=== PATIENT | female | born 1975 | race Caucasian/White ===

== ENCOUNTER 2022-10-16 14:23 | Emergency (ER) | payer SELFPAY ==
[~2022-10-16] VITALS: Ht 165.1 cm; Wt 78.0 kg
[2022-10-16 14:37] VITALS: BP 129/60
[2022-10-16] MEDS ORDERED: DEXAMETHASONE 10 MG/ML VIAL IM ONE (17:15)
[2022-10-16] MEDS ORDERED: IBUP-2029 MT (17:59)
== END 2022-10-16 18:33 | disposition home or self-care (01) ==
LOC: ER 14:23
DX: J06.9 Acute upper respiratory infection, unspecified (principal); Z20.822 Contact with and (suspected) exposure to COVID-19
CPT/HCPCS: 71045; 81025; 87070; 87426; 87430; 96372; 99284; C9803; J1100

== ENCOUNTER 2022-12-21 09:48 | Emergency (ER) | payer MEDICAID ==
[~2022-12-21] VITALS: Ht 167.6 cm; Wt 75.0 kg
[~2022-12-21 09:48] MED LIST: IBUP-2029 MT
[2022-12-21] MEDS ORDERED: MECLIZINE 25MG TABLET PO ONE (14:30)
[2022-12-21 15:39] LABS: BASOPHILS % 1.1 % (0.0-2.0); HEMATOCRIT. 42.8 % (36.0-48.0); HEMOGLOBIN. 14.4 g/dL (12.0-16.0); LYMPHOCYTES % 23.6 % (20.0-50.0); MEAN PLATELET VOLUME 8.2 fl (7.4-10.4); MONOCYTES % 7.1 % (2.0-8.0); NEUTROPHILS % 66.2 % (40.0-76.0); PLATELET 268 x1000/uL (130-400); RED BLOOD CELL COUNT 4.81 mill/uL (4.2-5.4); RED CELL DISTRIBUTION WIDTH 13.4 % (11.6-14.6)
[2022-12-21] MEDS ORDERED: MECL-159 MT (15:44)
[2022-12-21 15:49] LABS: CLARITY URINE CLOUDY (CLEAR); COLOR URINE DARK YELLOW (YELLOW); KETONES URINE 2+ (NEGATIVE); LEUKOCYTE ESTERASE URINE 1+ (NEGATIVE); NITRITE URINE NEGATIVE (NEGATIVE); OCCULT BLOOD URINE TRACE (NEGATIVE); PH URINE 5.5 (4.5-8.0); PROTEIN URINE TRACE (NEGATIVE); SPECIFIC GRAVITY URINE 1.035 (1.005-1.030)
[2022-12-21 15:50] LABS: HCG SCREEN NEGATIVE
[2022-12-21 15:52] LABS: CHLORIDE 110 mEq/L (98-107)
[2022-12-21] MEDS ORDERED: CEPH500C2 MT (16:09)
[2022-12-21 16:20] VITALS: BP 126/63
== END 2022-12-21 16:38 | disposition home or self-care (01) ==
LOC: ER 09:48 → EDBD 09:48 → ER 16:38
DX: R42 Dizziness and giddiness (principal); E86.0 Dehydration; N39.0 Urinary tract infection, site not specified; R03.0 Elevated blood-pressure reading, without diagnosis of hypertension; M79.602 Pain in left arm; M79.601 Pain in right arm
CPT/HCPCS: 36415; 70450; 80053; 81003; 84484; 84703; 85025; 93005; 99285; J8597

== ENCOUNTER 2025-02-14 08:57 | Emergency (ER) | payer SELFPAY ==
[~2025-02-14] VITALS: Ht 152.4 cm; Wt 72.0 kg
[~2025-02-14 08:57] MED LIST changes: +CEPH500C2 MT; +MECL-299 MT
[2025-02-14 08:58] VITALS: PULSE 63; RESP 14; O2SAT 100
[2025-02-14 09:03] VITALS: BP 108/69; TEMP 36.7; O2SAT 98
[2025-02-14 09:58] LABS: CARBON DIOXIDE 24 mEq/L (21-32); CHLORIDE 107 mEq/L (98-107); POTASSIUM 4.6 mEq/L (3.5-5.1); SODIUM 138 mEq/L (136-145)
[2025-02-14 09:59] LABS: CALCIUM 9.8 mg/dL (8.7-10.4)
[2025-02-14 10:01] LABS: BASOPHILS % 1.1 % (0.0-2.0); EOSINOPHILS % 6.9 % (0.0-5.0); HEMATOCRIT. 40.6 % (36.0-48.0); HEMOGLOBIN. 13.7 g/dL (12.0-16.0); MEAN CORPUSCULAR HEMOGLOBIN 29.6 pg (28.0-32.0); MEAN CORPUSCULAR HGB CONC 33.8 g/dL (31.0-37.0); MEAN CORPUSCULAR VOLUME 87.5 fL (81.0-99.0); MEAN PLATELET VOLUME 8.1 fl (7.4-10.4); MONOCYTES % 9.1 % (2.0-8.0); NEUTROPHILS % 61.9 % (40.0-76.0); PLATELET 260 x1000/uL (130-400); RED BLOOD CELL COUNT 4.64 mill/uL (4.2-5.4); RED CELL DISTRIBUTION WIDTH 13.4 % (11.6-14.6); WHITE BLOOD COUNT 5.8 x1000/uL (4.5-11.0)
[2025-02-14 10:03] LABS: CREATININE 0.7 mg/dL (0.6-1.0); GLUCOSE 123 mg/dL (70-105)
[2025-02-14 10:04] LABS: UREA NITROGEN BLOOD 17 mg/dL (9-23)
[2025-02-14 10:05] LABS: ALANINE AMINOTRANSFERASE 45 IU/L (10-49); ALBUMIN 4.1 g/dL (3.2-4.8); ASPARTATE AMINOTRANSFERASE 27 IU/L (<34)
[2025-02-14 10:06] LABS: BILIRUBIN TOTAL 0.9 mg/dL (0.1-1.0)
[2025-02-14 10:24] LABS: HCG SCREEN NEGATIVE
[2025-02-14] MEDS: ACETAMINOPHEN 325MG TABLET PO ONE (10:24)
[2025-02-14] MEDS ORDERED: IOHEXOL-300 100 ML BOTTLE ONE (11:11)
== END 2025-02-14 13:33 | disposition home or self-care (01) ==
LOC: ER 08:57
DX: M25.532 Pain in left wrist (principal); R10.32 Left lower quadrant pain; M54.50 Low back pain, unspecified; Z79.899 Other long term (current) drug therapy; Z98.890 Other specified postprocedural states; W01.0XXA Fall on same level from slipping, tripping and stumbling without subsequent striking against object, initial encounter; Y93.89 Activity, other specified; Y92.89 Other specified places as the place of occurrence of the external cause; Y99.8 Other external cause status
CPT/HCPCS: 99285; 74177; 76830; 76856; 80053; 84703; 85025; 36415; 73110; 73130; Q9967

== ENCOUNTER 2025-04-08 18:56 | Emergency (ER) | payer OTHER ==
[~2025-04-08] VITALS: Ht 152.4 cm; Wt 72.0 kg
[2025-04-08 19:03] VITALS: O2SAT 98
[2025-04-08 19:51] LABS: CLARITY URINE CLEAR (CLEAR); COLOR URINE YELLOW (YELLOW); GLUCOSE URINE NEGATIVE (NEGATIVE); KETONES URINE 2+ (NEGATIVE); LEUKOCYTE ESTERASE URINE 1+ (NEGATIVE); NITRITE URINE NEGATIVE (NEGATIVE); OCCULT BLOOD URINE TRACE (NEGATIVE); PH URINE 5.5 (4.5-8.0); PROTEIN URINE NEGATIVE (NEGATIVE); SPECIFIC GRAVITY URINE 1.027 (1.005-1.030); UROBILINOGEN URINE 0.2 E.U./dL (0.2-1.0)
[2025-04-08 20:02] LABS: BACTERIA URINE NONE SEEN; RBC URINE 0-2 /hpf (0-2); SQUAMOUS EPITHELIAL CELL URINE 1+ /lpf (RARE/1+)
[2025-04-08] MEDS ORDERED: FLUC150T46 MT (20:27)
[2025-04-08] MEDS ORDERED: CEPH500T MT (20:27)
[2025-04-08] MEDS ORDERED: METR70GE27 VG (20:27)
[2025-04-08 20:48] VITALS: BP 120/66; PULSE 61; RESP 17; TEMP 36.7; O2SAT 98
[2025-04-11 04:07] LABS: CHLAMYDIA TRACHOMATIS NAA Negative (Negative); NEISSERIA GONORRHOEAE NAA Negative (Negative)
== END 2025-04-08 20:53 | disposition home or self-care (01) ==
LOC: ER 18:56
DX: N39.0 Urinary tract infection, site not specified (principal); Z79.899 Other long term (current) drug therapy
CPT/HCPCS: 81003; 81025; 87491; 87591; 99283

== ENCOUNTER 2025-04-20 09:34 | Emergency (ER) | payer OTHER ==
[~2025-04-20] VITALS: Ht 152.4 cm; Wt 62.0 kg
[~2025-04-20 09:34] MED LIST changes: +CEPH500T MT; +FLUC150T46 MT; +METR70GE27 VG
[2025-04-20 09:48] VITALS: O2SAT 99
[2025-04-20] MEDS ORDERED: BROM118S47 PO (10:47)
[2025-04-20] MEDS: ONDANSETRON 4MG ODT PO ONE (11:29)
[2025-04-20 13:00] VITALS: BP 120/66; PULSE 64; RESP 18; TEMP 37.1; O2SAT 99
== END 2025-04-20 13:05 | disposition home or self-care (01) ==
LOC: ER 09:34
DX: B34.9 Viral infection, unspecified (principal); Z79.899 Other long term (current) drug therapy
CPT/HCPCS: 99283; 71045; 81025; Q0162